=== PATIENT | female | born 2000 | race African-American/Black ===

== ENCOUNTER 2025-01-07 11:21 | Emergency (ER) | payer OTHER, SELFPAY ==
[2025-01-07 11:40] VITALS: BP 119/70; PULSE 90; RESP 18; TEMP 36.7; O2SAT 97
--- NOTE | 2025-01-07 11:41 | ED_ITS ---
HPI - URI/Sore Throat General Chief Complaint: Upper Respiratory Infection Stated Complaint: Rash/congestion/throat Time Seen by Provider: 01/07/25 11:41 Source: patient, RN notes reviewed and old records reviewed Mode of arrival: ambulatory Limitations: no limitations History of Present Illness HPI Narrative: 24 year old female presents to [facility] care with intermittent sore throat and some congestion for one week and rash to her arms and face. Patient reports no fevers, chills or sweats. Patient reports that she has used Aquaphor to rash and she has taken some Zyrtec for her sinus congestion and sore throat, Patient reports no new skin products reports that significant other may of used some new detergent. MD elicited complaint: sore throat and other (congestion and rash) Onset (ago): week(s) (1) Severity: mild Able to tolerate fluids by mouth: Yes Treatments prior to arrival: other (zyrtec and Aquaphor lotion) Related Data Home Medications ?Medication ?Instructions ?Recorded ?Confirmed ?Last Taken ?Type fluoxetine 20 mg capsule mg 01/07/25 Unknown History hydroxyzine HCl 50 mg tablet mg 01/07/25 Unknown Hist ory oxcarbazepine 600 mg tablet mg 01/07/25 Unknown Histo ry Allergies Allergy/AdvReac Type Severity Reaction Status Date / Time No Known Allergies Allergy Verified 01/07/25 11:25 Review of Systems Review of Systems: CONSTITUTIONAL: Denies malaise, chills, sweats, or fever. EYES: Denies visual changes, redness, or discharge. ENT: Reports rhinorrhea, congestion, no sinus pain, no otalgia and positive sore throat. CARDIOVASCULAR: Denies chest pain, palpitations, or edema. RESPIRATORY: Reports cough.? Denies dyspnea. GASTROINTESTINAL: Denies abdominal pain, nausea, vomiting, diarrhea SKIN:Reports scattered areas of red raised rash to bilateral forearms and small area on face left cheek which is itchy, no drainage or weeping. MUSCULOSKELETAL: Denies myalgia. NEUROLOGIC: Denies headache. All systems reviewed & are unremarkable except as noted in HPI and below PMFSH Past Medical History Medical History Depression Bipolar 1 disorder Social History Social History Smoking status: Never smoker Gender identity (if verbalized by the patient): Female Comments At time of signature, agree with nursing past medical, surgical, social and family history. There is no relevant family history pertinent to the presenting complaint Exam Narrative: GENERAL: Well-appearing, well-nourished, and in no acute distress. HEAD: Normocephalic EYES: PERRLA, conjunctivae clear ENT: Nares clear, turbinates edematous and erythematous, clear discharge. Mucous membranes moist. TM pearly de la garza with dull light reflex bilaterally; no tragal tenderness. Oropharynx erythematous without lesions. Tonsils not enlarged and without exudate, no drooling, no hoarseness, no trismus, uvula midline, post nasal drainage noted NECK: Supple. No lymphadenopathy CHEST: Clear to auscultation, breath sounds equal. No wheezing, rhonchi, rales, or stridor. No respiratory distress, speaks in full sentences.SAO2 97% on room air HEART: Regular rate and rhythm. No murmur heard. SKIN: Warm, dry, scattered areas pf red raised rash that is itchy to bilateral arms and small area to left side of face, no drainage or vesicles NEURO: Alert and oriented x3. PSYCH: Normal mood and affect Course Course Emergency Course: Patient is aware of diagnosis, understands and agrees to treatment plan.? Anticipatory guidance given.? Patient agrees to follow-up as directed and is aware of reasons to seek care at the emergency department. Portions of this record may have been created with voice recognition software Level of Care: Express Care Visit Vital Signs Vital signs: Vital Signs Temperature 36.7 C 01/07/25 11:40 Pulse Rate 90 01/07/25 11:40 Respiratory Rate 18 01/07/25 11:40 Blood Pressure 119/70 01/07/25 11:40 Pulse Oximetry 97 01/07/25 11:40 Oxygen Delivery Room Air 01/07/25 11:40 Temperature 36.7 C 01/07/25 11:40 Pulse Rate 90 01/07/25 11:40 Respiratory Rate 18 01/07/25 11:40 Blood Pressure 119/70 01/07/25 11:40 Pulse Oximetry 97 01/07/25 11:40 Oxygen Delivery Room Air 01/07/25 11:40 Reviewed MDM - URI/Sore Throat MDM Narrative Medical decision making narrative: Differential diagnosis considered: Traylor virus, strep pharyngitis, allergic rhinitis, upper respiratory tract infection, sinusitis, rhinosinusitis, nasopharyngitis. viral pharyngitis, otitis media, otitis externa, pneumonia, bronchitis, viral cough syndrome, viral syndrome, and influenza.? Exam findings show no acute concerns or changes; patient is non-toxic appearing and is in no distress.? Patient is appropriate for outpatient treatment and follow-up. Differential Diagnosis Differential diagnosis: Likely upper respiratory infection, viral infection, pharyngitis and other (strep pharyngitis, rash, eczema, contact dermatitis) Medical Records Attestation: I reviewed the patient's medical records. Lab Data Attestation: I reviewed the patient's lab results. Lab results narrative: strep screen negative, culture sent Labs: Lab Results 01/07/25 Range/Units 11:48 POC Grp A Strep Screen Negative (Negative) Critical Care Time Critical Care Time Critical Care Time: No Discharge Plan Discharge Clinical Impression: Contact dermatitis Qualifiers: Contact dermatitis type: unspecified Contact dermatitis trigger: unspecified trigger Qualified Code(s): L25.9 - Unspecified contact dermatitis, unspecified cause Pharyngitis Qualifiers: Pharyngitis/tonsillitis etiology: unspecified etiology Qualified Code(s): J02.9 - Acute pharyngitis, unspecified Patient Disposition: Home Condition: Stable Instructions: Contact Dermatitis (ED), Pharyngitis (ED) Additional Instructions: Apply triamcinolone to rash 2 times a day, never apply to face use hydrocortisone ointment to face watch for any infection--redness, swelling, drainage Tylenol or Ibuprofen per package direction for any fever or pain follow up with PCP in 7-10 days for a wound check Zyrtec 10 mg po daily Pepcid 20 mg daily for 10 days recheck if develop fever, chills, increasing symptom Go to the ER if your symptoms become worse of if ANY new symptoms develop Your strep test today was negative. A throat culture will be sent to the laboratory for further testing. IF the test is positive, you will receive a phone call within 48 hours and an appropriate antibiotic will be initiated at that time. Steroid taper take as prescribed with food Patient Language: Kyrgyz Prescriptions: New triamcinolone acetonide 0.1 % ointment 1 applic topical BID Qty: 80 0RF Rx Instructions: to rash NEVER APPLY TO FACE prednisone 10 mg tablet 10 mg PO DIRECTED Qty: 21 0RF Rx Instructions: see taper instructions 6 tabs day 1, 5 tabs day 2, 4 tabs day 3, 3 tabs day 4, 2 tabs day 5, 1 tab day 6 cetirizine [Zyrtec] 10 mg tablet 10 mg PO DAILY Qty: 30 0RF famotidine [Pepcid] 20 mg tablet 20 mg PO DAILY Qty: 10 0RF No Action hydroxyzine HCl 50 mg tablet oxcarbazepine 600 mg tablet fluoxetine 20 mg capsule Follow-up/Referrals: Anatoliy,Virginia Snow MD [Primary Care Provider, Family Practice] Time of Disposition: 12:04 Quality Hubert Coma Scale Eyes: Open Verbal: Oriented and Alert Motor: Follows Commands Hubert Coma Total Score: 15
[2025-01-07 11:53] LABS: EDSTREPNEGPOS1 Negative (Negative)
== END 2025-01-07 12:10 | disposition home or self-care (01) ==
PROVIDERS: Emergency Provider Registered Nurse; PCP Family Medicine
DX: L25.9 Unspecified contact dermatitis, unspecified cause (principal); J02.9 Acute pharyngitis, unspecified; F31.9 Bipolar disorder, unspecified
CPT/HCPCS: 87081; 87880; 99203; G0463